=== PATIENT | male | born 1995 | race Caucasian/White ===

== ENCOUNTER 2017-07-04 00:33 | Emergency (ER) | payer MEDICAID ==
[2017-07-04 01:23] VITALS: BP 139/90
== END 2017-07-04 01:23 | disposition home or self-care (01) ==
LOC: ED 00:33
DX: S71.111A Laceration without foreign body, right thigh, initial encounter (principal); W20.8XXA Other cause of strike by thrown, projected or falling object, initial encounter; Y93.89 Activity, other specified; Y92.89 Other specified places as the place of occurrence of the external cause; Y99.8 Other external cause status
CPT/HCPCS: 90715